=== PATIENT | female | born 1960 | race Caucasian/White ===

== ENCOUNTER 2022-12-01 01:40 | Inpatient (IN) | payer OTHER, SELFPAY ==
--- OUTSIDE RECORDS SUMMARY | 2022-12-01 01:43 | XMS_ITS | Patient Health Record ---
Author Name Unknown Organization [facility] Address [address] [place] [address] Care Team Providers Care Feather Stitcher Name Role Phone CARLOS MANUEL CURRIE Primary Care Provider Marcelino Conroy Unavailable [phone] REASON FOR REFERRAL No Information MEDICATIONS Medication SIG (Take, Route, Frequency, Duration) Notes Start Date End Date Status buPROPion HCl 100 MG 1 tablet Orally Twi ce a day for 30 day(s) Active Omeprazole 40 MG 1 capsule 30 minutes before morning meal Orally Once a day for 30 day(s) Active Divalproex Sodium ER 500 MG 1 tablet Ora lly Once a day for 30 day(s) Active Venlafaxine HCl 25 MG 1 tablet with food Orally Twice a day for 30 day(s) Active Gabapentin 300 MG 1 capsule Orally Onc e a day for 30 day(s) Active traZODone HCl 50 MG 1 tablet at bedtime as needed Orally Once a day for 30 day(s) Active Probiotic 250 MG 1 capsule Orally Twi ce a day for 30 day(s) Active SOCIAL HISTORY Sex Assigned At : Social History Observation Description Sex Assigned At Unknown PLAN OF TREATMENT No Information Insurance Providers Payer Name Payer Address Payer Phone Subscriber Number Group Number Insured Name Patient Relationship to Insured Coverage Start Date Coverage End Date [facility] [address] [address] [place] [phone] [id number] Jena Rivera Self - patient is the insured [employer] [address] [place] [address] [id number] Jena Rivera Self - patient is the insured MEDICAL (GENERAL) HISTORY Medical History History ICD Code insomnia serasonal allergies tremors gastroesophageal reflux disease (GERD) Hiatal hernia Surgical History Surgery Date(Month/Year) colonoscopy
[2022-12-01 01:50] VITALS: BP 141/67; PULSE 68; RESP 18; TEMP 36.4; O2SAT 99
[2022-12-01] MEDS: Famotidine 20 MG TABLET PO ×3 (03:41→22:15)
[2022-12-01 04:00] VITALS: BMI 27.8
--- NOTE | 2022-12-01 06:55 | PC.ADMIT ---
Pt is a 62 year old female admitted to unit after referral from [facility] crisis referral service from [facility]. Arrived on unit at 0150 this AM. Legal status is CV. Pt reported medical issues are GERD and pt is also hard of hearing. Pt did not report DM Type 1 but it is on ED notes in places from [facility]. Pt denies substance use, tobacco use or etoh use. Per crisis report pt was having increased depression and SI and reported to doctor at urgent care that she wanted to walk into traffic to end her life. Pt has anxiety, depression, bipolar and PTSD. Doctor at urgent care directed pt to got to ED for evaluation. Pt denies any IPLOC admissions gustavo reports hx of SA's many years ago via OD on meds and states she never told anyone. Pt denies any psych sx. Pt presents as quiet and she is cooperative, has a sense of humor about herself and has direct and linear thought pattern. Provider relationship banker Mosqueda notified of admission and orders obtained. Pt placed on 15 minute safety checks and reports feeling safe in the hospital.
[2022-12-01 09:00] VITALS: BP 118/58; PULSE 64; RESP 20; TEMP 36.6; O2SAT 98
[2022-12-01] MEDS: Gabapentin 300 MG CAPSULE PO (10:40)
[2022-12-01] MEDS: buPROPion HCl XL 300 MG TAB.ER.24H PO (10:48)
[2022-12-01] MEDS: Omeprazole 20 MG CAPSULE.DR PO ×2 (10:48→16:42)
--- NOTE | 2022-12-01 11:20 | P.CONHOSP_ITS ---
History of Present Illness Data of Consult Service Date: 12/01/22 Primary Care Provider: Unknown Physician HPI Reason for consult: Admission H&P Pt is a 62-year-old female with a PMH significant for?IBS, GERD, hiatal hernia, celiac disease/gluten intolerance, HLD not on statin, and depression who is admitted to [facility] psychiatry unit for increasing depression for the past 2 months with SI with plan to walk into traffic. Medical consult for admission H&P. ?Patient has a long history of GI issues, including IBS, gluten intolerance/celiac disease, hiatal hernia, and GERD. Patient complains of worsening acid reflex for the past few days secondary to missing a few doses of her famotidine and pantoprazole while in the hospital. Patient also complains of vaginal follow odor and itching for many months. Patient says she was previously diagnosed with bacterial vaginosis though she did not seek treatment due to her depression. Patient seems amenable to repeating testing and receiving treatment for possible bacterial vaginosis. She also reports having high cholesterol she controls with diet rather than with statins. Patient otherwise has no acute medical complaints. Denies chest pain/pressure, palpitations. No shortness of breath. Denies fever, chills, nausea, vomiting, abdominal pain. Labs reviewed, grossly unremarkable. Review of Systems Review of Systems: Chronic acid reflux, worse the past few days since missed doses of PPI and H2 becca Vaginal foul odor, itching Denies dysuria Denies fever, chills, nausea, vomiting, abdominal pain No chest pain/pressure, palpitations Denies shortness of breath PMFSH Social History Household Members: Unknown / Unable to assess Housing: Apartment Do you presently have visiting nurse or other home services: No Patient Tobacco Use Status: Never used Tobacco Use of substances other than those prescribed or required for medical reasons: No Currently Displaying Signs/Symptoms of Drug Intoxication Withdrawal: No Do you feel safe in your current relationship?: Yes Advance Directives: No Advance Directives Information Provided: No Do you have thoughts of harming others: None Do you have a plan to hurt others: No Plan Recently lost weight without trying: No How much weight loss: Not applicable Eating poorly because of decreased appetite: No Nutrition screen score: 0 Patient : No : No Meds Allergies Allergy/AdvReac Type Severity Reaction Status Date / Time gluten Allergy Unknown Unknown Verified 12/01/22 03:59 milk Allergy Unknown Unknown Verified 12/01/22 04:00 Active Medications: Current Medications Acetaminophen (Acetaminophen 325 Mg Tablet) 650 mg PO Q6H PRN PRN Reason: Headache/Pain Mild Scale (1-3) Al Hydroxide/Mg Hydroxide (Magnesium Hydrox/Alum Hydrox 30 Ml Oral.Susp) 30 ml PO Q6H PRN PRN Reason: Heartburn/Nausea Bupropion HCl (Bupropion Hcl Xl 300 Mg Tab.Er.24h) 300 mg PO DAILY REPLACED BY [facility] Last Admin: 12/01/22 10:48 Dose: 300 mg Divalproex Sodium (Divalproex Sodium Er 500 Mg Tab.Er.24h) 500 mg PO BEDTIME REPLACED BY [facility] Famotidine (Famotidine 20 Mg Tablet) 20 mg PO BEDTIME REPLACED BY [facility] Fluticasone Propionate (Fluticasone Propionate Nasal 16 Gm [place]) 1 spray NOSTRIL-B BID REPLACED BY [facility] Gabapentin (Gabapentin 300 Mg Capsule) 300 mg PO DAILY REPLACED BY [facility] Last Admin: 12/01/22 10:40 Dose: 300 mg Hydroxyzine HCl (Hydroxyzine Hcl 25 Mg Tablet) 25 mg PO Q6H PRN PRN Reason: Anxiety Magnesium Hydroxide (Milk Of Magnesia 30 Ml Oral.Susp) 30 ml PO DAILY PRN PRN Reason: Constipation Magnesium Oxide (Magnesium Oxide 400 Mg Tablet) 400 mg PO BEDTIME REPLACED BY [facility] Nicotine Polacrilex (Nicotine Polacrilex 2 Mg Gum) 2 mg BUCCAL Q2H PRN PRN Reason: Nicotine Cravings Omeprazole (Omeprazole 20 Mg Capsule.Dr) 20 mg PO BID@0630,1630 REPLACED BY [facility] Last Admin: 12/01/22 10:48 Dose: 20 mg Trazodone HCl (Trazodone Hcl 50 Mg Tablet) 50 mg PO BEDTIME MRX1 PRN PRN Reason: Insomnia Trazodone HCl (Trazodone Hcl 50 Mg Tablet) 50 mg PO BEDTIME REPLACED BY [facility] Home Medications Medication Instructions Recorded Confirmed Last Taken Type bupropion HCl 150 mg tablet,12 hr 150 mg PO BID 12/01/22 12/01/22 Unknown History sustained-release divalproex 500 mg tablet,extended 500 mg PO BEDTIME 12/01/22 12/01/22 Unknown History release 24 hr famotidine 20 mg tablet 20 mg PO BEDTIME 12/01/22 12/01/22 11/30/22 09:18 History fluticasone propionate 50 1 spray intranasal BID 12/01/22 12/01/22 Unknown History mcg/actuation nasal spray,suspension gabapentin 300 mg capsule 300 mg PO DAILY 12/01/22 12/01/22 Unknown History magnesium oxide 400 mg (241.3 mg 400 mg PO BEDTIME 12/01/22 12/01/22 11/30/22 History magnesium) tablet pantoprazole 40 mg tablet,delayed 40 mg PO BID 12/01/22 12/01/22 Unknown History release trazodone 100 mg tablet 50 mg PO BEDTIME 12/01/22 12/01/22 Unknown History Physical Exam Vital Signs and Narrative: Vital Signs: Last Vital Signs Temp 97.8 F 12/01/22 09:00 Pulse 64 12/01/22 09:00 Resp 20 12/01/22 09:00 BP 118/58 L 12/01/22 09:00 Pulse Ox 98 12/01/22 09:00 O2 Del Method Room Air 12/01/22 09:00 BMI result Body Mass Index 27.8 Constitutional: Alert, in no acute distress. Mental Status: Oriented to person, place and time. Eyes: Pupils are equal, round, and reactive to light. Ear, Nose, and Throat: Oropharynx clear, mucous membranes moist. Ears and nose without deformities. Trachea midline. Respiratory: Clear to auscultation bilaterally. No wheezing, rales, or rhonchi. Cardiovascular: S1, S2 regular. No murmurs, rubs, or gallops. Gastrointestinal: Abdomen soft, non-tender, non-distended. Normal bowel sounds. Neurologic: Cranial nerves II-XII are grossly intact bilaterally. No focal neurological deficits. Moves all extremities spontaneously. Skin: No rashes or lesions noted. Musculoskeletal: No cyanosis or clubbing. Extremities: No edema. Psychiatric: Normal mood and affect. Assessment and Plan (1) Medical clearance for psychiatric admission: Status: Acute Plan Pt is a 62-year-old female with a PMH significant for?IBS, GERD, hiatal hernia, celiac disease/gluten intolerance, HLD not on statin, and depression who is admitted to psychiatry unit for increasing depression for the past 2 months with SI with plan to walk into traffic. Medical consult for admission H&P. Mood disorder Plan as per Psychiatry Question of bacterial vaginosis Patient states she has had vaginal foul order and itching for quite sometime States she was diagnosed with BV previously but has not yet sought treatment Will get BV panel, patient can self swab Gluten intolerance Will place gluten-free diet HLD Patient states she has high cholesterol but not on statins but instead controls it with diet Will place on low-fat diet IBS/GERD Continue famotidine, pantoprazole Thank you for allowing us to participate in the care of this patient. Will continue to follow pending swab results. Please let us know if there are any acute complaints or questions. Time Spent With Patient Time: Total time managing care of this patient today ____ minutes.
[2022-12-01] MEDS: Fluticasone Propionate Nasal 16 GM SPRAY 1 SPRAY NOSTRIL-B ×2 (12:41→22:56)
[2022-12-01 20:05] VITALS: BP 135/83; PULSE 87; RESP 18; TEMP 36.3; O2SAT 100
--- NOTE | 2022-12-01 20:42 | HO.PSYADMNOT ---
HPI Date of Service: 12/01/22 Chief Complaint: Major Depressive Disorder HPI Narrative: per crisis assessment from OSH, pt presented to ED 11/29 with c/o SI with plan to walk into traffic. she endorsed anhedonia, amotivation, anergia, anorexia, insomnia, depressed mood, SI. she reported psychosocial stressors of concern for housing stability (that her boyfriend might ask her to move out), unemployment with financial strain, inability to act on these issues so as to ameliorate them. on interview with MD on psych unit, pt's narrative c/w that in crisis michelle. unable to clearly establish connection btwn life events and current Sx, however. reports she had done well on imipramine in the past but has had to stop taking it due to cardiac effects. she is not very confident in her recall, but she believes she has tried prozac, zoloft, and paxil in the past. she believes one or more of those medications caused an increase in anxiety for her. she is unable to account for why she is prescribed depakote or gabapentin, other than believing that they are mood stabilizers, though she denies any h/o manic episodes. she is concerned about depression, for the most part, currently. she is agreeable to DC gabapentin as not indicated for any purpose and to increase wellbutrin to 450 mg daily for depression. that VPA is present as a prophylactic AED is discussed, in the context of black box warning to increased risk of seizure with wellbutrin. Past Psychiatric History: hosps: none prior SA: remote h/o overdose; not reported so had no treatment SIB: h/o skin picking, none recently outpt: has outpt med provider she sees remotely and whom she feels is very difficult to get a hold of. Medical Evaluation Reviewed: Hospitalist Michelle Pending [facility] Narrative: hearing impaired GERD gluten sensitivity leaky [cardiac] valve Family History: mother - bipolar disorder other family members on wellbutrin, helped by it. father's side has substance use disorder Hx, unspecified. Social History: living with her boyfriend annette in [place]. not working. Substance History: cannabis - daily past 4 years alcohol - h/o 2 mixed drinks daily, now sober Trauma History: reported h/o childhood trauma Diagnostics Vital Signs (24Hr): Vital Signs - 24 hr 12/01/22 01:50 12/01/22 09:00 Temperature 97.6 F 97.8 F Pulse Rate 68 64 Respiratory Rate 18 20 Blood Pressure 141/67 H 118/58 L Pulse Oximetry 99 98 Oxygen Delivery Method Room Air Room Air BMI result Body Mass Index 27.8 Meds/Allergies Meds Home Medications Medication Instructions Recorded Confirmed Type bupropion HCl 150 mg tablet,12 hr 150 mg PO BID 12/01/22 12/01/22 History sustained-release divalproex 500 mg tablet,extended 500 mg PO BEDTIME 12/01/22 12/01/22 History release 24 hr famotidine 20 mg tablet 20 mg PO BEDTIME 12/01/22 12/01/22 History fluticasone propionate 50 1 spray intranasal BID 12/01/22 12/01/22 History mcg/actuation nasal spray,suspension gabapentin 300 mg capsule 300 mg PO DAILY 12/01/22 12/01/22 History magnesium oxide 400 mg (241.3 mg 400 mg PO BEDTIME 12/01/22 12/01/22 History magnesium) tablet pantoprazole 40 mg tablet,delayed 40 mg PO BID 12/01/22 12/01/22 History release trazodone 100 mg tablet 50 mg PO BEDTIME 12/01/22 12/01/22 History Allergies Allergies Allergy/AdvReac Type Severity Reaction Status Date / Time gluten Allergy Unknown Unknown Verified 12/01/22 03:59 milk Allergy Unknown Unknown Verified 12/01/22 04:00 Mental Status Exam Mental Status Exam Narrative: calm, cooperative. adequately dressed and groomed, wearing street clothes. no PMA/PMR. speech incr amount, nml rate and loudness, decr latency. thoughts linear and logical. affect constricted, normo-intense, non-labile. mood nervous, hopeful. denies SI/SIBI/HI/AVH. Assessment & Plan Assessment & Plan (1) Chronic post-traumatic stress disorder (PTSD): Status: Acute Code(s): F43.12 - Post-traumatic stress disorder, chronic (2) Major depressive disorder: Status: Acute Code(s): F32.9 - Major depressive disorder, single episode, unspecified (3) Cannabis use disorder: Status: Acute Code(s): F12.90 - Cannabis use, unspecified, uncomplicated (4) Asperger's disorder: Status: Acute Code(s): F84.5 - Asperger's syndrome Plan increase wellbutrin to 450 mg daily DC gabapentin as not indicated Patient educated on: diagnosis, medication risk/benefits and substance abuse Reason for continued inpatient stay Substantial Risk for: harm to self, inability to function and rapid decompensation Statement Statement: I have reviewed the history and physical and performed a pertinent examination on my patient. No changes have occurred unless specified. If the History and Physical was not performed prior to admission, the Hospitalist's service will be consulted for completing the admission physical. Time Spent With Patient Time: Total time managing care of this patient today __75__ minutes.
[2022-12-01] MEDS: Divalproex Sodium ER 500 MG TAB.ER.24H PO (22:15)
[2022-12-01] MEDS: traZODone HCL 50 MG TABLET PO (22:15)
[2022-12-01] MEDS: Magnesium Oxide 400 MG TABLET PO (22:16)
[2022-12-02] MEDS: Omeprazole 20 MG CAPSULE.DR PO ×2 (07:14→17:05)
[2022-12-02 07:58] LABS: Estimated Average Glucose 103 mg/dL; Hemoglobin A1C 111.1143 umol/L; Hemoglobin A1c % 5.2 % (<6.0)
[2022-12-02 08:55] VITALS: BP 119/53; PULSE 62; RESP 20; TEMP 36.3; O2SAT 97
[2022-12-02] MEDS: buPROPion HCl XL 150 MG TAB.ER.24H 450 MG PO (08:57)
[2022-12-02] MEDS: Famotidine 20 MG TABLET PO ×2 (08:58→20:58)
[2022-12-02] MEDS: Fluticasone Propionate Nasal 16 GM SPRAY 1 SPRAY NOSTRIL-B ×2 (09:59→20:58)
[2022-12-02 12:18] LABS: Alanine Aminotransferase 15 U/L (0-31); Albumin Level 4.2 g/dL (3.5-5.0); Alkaline Phosphatase 63 U/L (39-117); Anion Gap 16 (12-20); Aspartate Amino Transferase 18 U/L (5-31); Bilirubin Total 0.3 mg/dL (0.0-1.0); Blood Urea Nitrogen 23 mg/dL (9-16); Calcium 9.5 mg/dL (8.4-10.2); Carbon Dioxide 23 mmol/L (22-29); Chloride 106 mmol/L (96-108); Cholesterol 257 mg/dL (<200); Creatinine Clr Calc Pharmacy 42.1; Estimated Glomerular Filt Rate 44; Folate 13.5 ng/mL (> or = 4.0); Free T4 (Free Thyroxine) 0.79 ng/dL (0.71-1.85); Glucose Fasting 104 mg/dL (60-99); HDL Cholesterol 47 mg/dL (>40); LDL Cholesterol Calculated 144 mg/dL (<100); Potassium 4.7 mmol/L (3.3-5.1); Sodium 140 mmol/L (135-145); Thyroid Stimulating Hormone 4.12 uIU/mL (0.32-4.0); Total Protein 6.9 g/dL (6.5-8.0); Triglycerides 332 mg/dL (<150); Vitamin B12 845 pg/mL (200-900)
--- NOTE | 2022-12-02 15:14 | P.PNPSI_ITS ---
Subjective Subjective Date of Service: 12/02/22 Reason For Visit: Major Depressive Disorder Interim History: pleasant, somewhat labile, comes to tears quickly upon mentioning her cat. discuss removal of milk allergy and Rx for eye drops. will continue current mgmt for now. per staff, reporting dep/anx 12/11. Mental Status Exam Mental Status Exam Narrative: calm, cooperative. adequately dressed and groomed, wearing street clothes. no PMA/PMR. speech incr amount, nml rate and loudness, decr latency. thoughts linear and logical. affect full range, hyper-intense, min-labile (teary). no SI/SIBI/HI/AVH expressed. Diagnostics Vital Signs (24Hr): Vital Signs - 24 hr 12/01/22 20:05 12/02/22 08:55 Temperature 97.4 F 97.3 F Pulse Rate 87 62 Respiratory Rate 18 20 Blood Pressure 135/83 119/53 L Pulse Oximetry 100 97 Oxygen Delivery Method Room Air Room Air BMI result Body Mass Index 27.8 Labs 12/02/22 07:06 Labs: Laboratory Results - last 48 hr 12/02/22 07:06 Sodium 140 Potassium 4.7 Chloride 106 Carbon Dioxide 23 Anion Gap 16 BUN 23 H Creatinine 1.24 Estim Creat Clear Calc 42.1 Estimated GFR 44 Fasting Glucose 104 H Estimat Average Glucose 103 Hemoglobin A1c % 5.2 Calcium 9.5 Total Bilirubin 0.3 AST 18 ALT 15 Alkaline Phosphatase 63 Total Protein 6.9 Albumin 4.2 Triglycerides 332 H Cholesterol 257 H LDL Cholesterol, Calc 144 H HDL Cholesterol 47 Vitamin B12 845 Folate 13.5 TSH 4.12 H Free T4 0.79 Medications Medications Current Medications Acetaminophen (Acetaminophen 325 Mg Tablet) 650 mg PO Q6H PRN PRN Reason: Headache/Pain Mild Scale (1-3) Al Hydroxide/Mg Hydroxide (Magnesium Hydrox/Alum Hydrox 30 Ml Oral.Susp) 30 ml PO Q6H PRN PRN Reason: Heartburn/Nausea Bupropion HCl (Bupropion Hcl Xl 150 Mg Tab.Er.24h) 450 mg PO DAILY [facility] Last Admin: 12/02/22 08:57 Dose: 450 mg Divalproex Sodium (Divalproex Sodium Er 500 Mg Tab.Er.24h) 500 mg PO BEDTIME [facility] Last Admin: 12/01/22 22:15 Dose: 500 mg Famotidine (Famotidine 20 Mg Tablet) 20 mg PO BID [facility] Last Admin: 12/02/22 08:58 Dose: 20 mg Fluticasone Propionate (Fluticasone Propionate Nasal 16 Gm [place]) 1 spray NOSTRIL-B BID [facility] Last Admin: 12/02/22 09:59 Dose: 1 spray Hydroxyzine HCl (Hydroxyzine Hcl 25 Mg Tablet) 25 mg PO Q6H PRN PRN Reason: Anxiety Magnesium Hydroxide (Milk Of Magnesia 30 Ml Oral.Susp) 30 ml PO DAILY PRN PRN Reason: Constipation Magnesium Oxide (Magnesium Oxide 400 Mg Tablet) 400 mg PO BEDTIME [facility] Last Admin: 12/01/22 22:16 Dose: 400 mg Nicotine Polacrilex (Nicotine Polacrilex 2 Mg Gum) 2 mg BUCCAL Q2H PRN PRN Reason: Nicotine Cravings Patient Own Pataday 1 each EYE-BOTH BEDTIME [facility] Omeprazole (Omeprazole 20 Mg Capsule.Dr) 20 mg PO BID@0630,1630 [facility] Last Admin: 12/02/22 07:14 Dose: 20 mg Trazodone HCl (Trazodone Hcl 50 Mg Tablet) 50 mg PO BEDTIME MRX1 PRN PRN Reason: Insomnia Trazodone HCl (Trazodone Hcl 50 Mg Tablet) 50 mg PO BEDTIME [facility] Last Admin: 12/01/22 22:15 Dose: 50 mg Allergies Allergies Allergy/AdvReac Type Severity Reaction Status Date / Time gluten Allergy Unknown Unknown Verified 12/01/22 03:59 Assessment & Plan Assessment & Plan (1) Chronic post-traumatic stress disorder (PTSD): Status: Acute Code(s): F43.12 - Post-traumatic stress disorder, chronic (2) Major depressive disorder: Status: Acute Code(s): F32.9 - Major depressive disorder, single episode, unspecified (3) Cannabis use disorder: Status: Acute Code(s): F12.90 - Cannabis use, unspecified, uncomplicated (4) Asperger's disorder: Status: Acute Code(s): F84.5 - Asperger's syndrome Plan 11/30: increase wellbutrin to 450 mg daily. DC gabapentin as not indicated. 12/02: full range of affect, a bit labile/teary. continue current mgmt. Reason for continued inpatient stay Substantial Risk for: harm to self, inability to function and rapid decompensation Time Spent With Patient Time: Total time managing care of this patient today ____ minutes.
[2022-12-02 19:22] VITALS: BP 135/70; PULSE 88; RESP 18; TEMP 36.4; O2SAT 97
[2022-12-02] MEDS: traZODone HCL 50 MG TABLET PO (20:58)
[2022-12-02] MEDS: Magnesium Oxide 400 MG TABLET PO (20:58)
[2022-12-02] MEDS: Divalproex Sodium ER 500 MG TAB.ER.24H PO (20:58)
[2022-12-03] MEDS: Omeprazole 20 MG CAPSULE.DR PO ×2 (06:44→17:29)
[2022-12-03] MEDS: Fluticasone Propionate Nasal 16 GM SPRAY 1 SPRAY NOSTRIL-B ×2 (08:32→20:40)
[2022-12-03] MEDS: Famotidine 20 MG TABLET PO ×2 (08:32→20:40)
[2022-12-03] MEDS: buPROPion HCl XL 150 MG TAB.ER.24H 450 MG PO (08:32)
[2022-12-03 08:48] VITALS: BP 104/66; PULSE 89; RESP 18; TEMP 36.2; O2SAT 96
[2022-12-03 08:56] LABS: BV Int Neg Control Negative (Negative); BV Int Pos Control Positive (Positive)
[2022-12-03] MEDS: Psyllium seed 3.7 GM PACKET PO (12:44)
[2022-12-03] MEDS: metroNIDAZOLE 500 MG TABLET PO (13:26)
--- NOTE | 2022-12-03 13:49 | HO.PSYCHPN ---
Subjective Subjective Date of Service: 12/03/22 Reason For Visit: Major Depressive Disorder Interim History: mood better. asks for metamucil. urine gardnerella POS, flagyl started. per staff, anx/dep 10 yesterday. no SI/HI. cheerful, cooperative. slept well, taking meds. Mental Status Exam Mental Status Exam Narrative: calm, cooperative. adequately dressed and groomed, wearing street clothes. no PMA/PMR. speech incr amount, nml rate and loudness, decr latency. thoughts linear and logical. affect full range, hyper-intense, non-labile. no SI/SIBI/HI/AVH expressed. Diagnostics Vital Signs (24Hr): Vital Signs - 24 hr 12/02/22 19:22 12/03/22 08:48 Temperature 97.6 F 97.2 F Pulse Rate 88 89 Respiratory Rate 18 18 Blood Pressure 135/70 104/66 Pulse Oximetry 97 96 Oxygen Delivery Method Room Air Room Air BMI result Body Mass Index 27.8 Labs 12/02/22 07:06 Labs: Laboratory Results - last 48 hr 12/01/22 12/02/22 16:33 07:06 Sodium 140 Potassium 4.7 Chloride 106 Carbon Dioxide 23 Anion Gap 16 BUN 23 H Creatinine 1.24 Estim Creat Clear Calc 42.1 Estimated GFR 44 Fasting Glucose 104 H Estimat Average Glucose 103 Hemoglobin A1c % 5.2 Calcium 9.5 Total Bilirubin 0.3 AST 18 ALT 15 Alkaline Phosphatase 63 Total Protein 6.9 Albumin 4.2 Triglycerides 332 H Cholesterol 257 H LDL Cholesterol, Calc 144 H HDL Cholesterol 47 Vitamin B12 845 Folate 13.5 TSH 4.12 H Free T4 0.79 Michelle species DNA Negative Gardnerella DNA Probe Positive A Trichomonas DNA Probe Negative Medications Medications Current Medications Acetaminophen (Acetaminophen 325 Mg Tablet) 650 mg PO Q6H PRN PRN Reason: Headache/Pain Mild Scale (1-3) Al Hydroxide/Mg Hydroxide (Magnesium Hydrox/Alum Hydrox 30 Ml Oral.Susp) 30 ml PO Q6H PRN PRN Reason: Heartburn/Nausea Bupropion HCl (Bupropion Hcl Xl 150 Mg Tab.Er.24h) 450 mg PO DAILY [facility] Last Admin: 12/03/22 08:32 Dose: 450 mg Divalproex Sodium (Divalproex Sodium Er 500 Mg Tab.Er.24h) 500 mg PO BEDTIME [facility] Last Admin: 12/02/22 20:58 Dose: 500 mg Famotidine (Famotidine 20 Mg Tablet) 20 mg PO BID [facility] Last Admin: 12/03/22 08:32 Dose: 20 mg Fluticasone Propionate (Fluticasone Propionate Nasal 16 Gm [place]) 1 spray NOSTRIL-B BID [facility] Last Admin: 12/03/22 08:32 Dose: 1 spray Hydroxyzine HCl (Hydroxyzine Hcl 25 Mg Tablet) 25 mg PO Q6H PRN PRN Reason: Anxiety Magnesium Hydroxide (Milk Of Magnesia 30 Ml Oral.Susp) 30 ml PO DAILY PRN PRN Reason: Constipation Magnesium Oxide (Magnesium Oxide 400 Mg Tablet) 400 mg PO BEDTIME [facility] Last Admin: 12/02/22 20:58 Dose: 400 mg Metronidazole (Metronidazole 500 Mg Tablet) 500 mg PO Q12H [facility] Stop: 12/10/22 12:59 Last Admin: 12/03/22 13:26 Dose: 500 mg Nicotine Polacrilex (Nicotine Polacrilex 2 Mg Gum) 2 mg BUCCAL Q2H PRN PRN Reason: Nicotine Cravings Patient Own Pataday 1 each EYE-BOTH BEDTIME [facility] Last Admin: 12/02/22 20:58 Dose: 1 each Omeprazole (Omeprazole 20 Mg Capsule.Dr) 20 mg PO BID@0630,1630 [facility] Last Admin: 12/03/22 06:44 Dose: 20 mg Psyllium Hydrophilic Mucilloid (Psyllium Seed 3.7 Gm Packet) 3.7 gm PO DAILY [facility] Last Admin: 12/03/22 12:44 Dose: 3.7 gm Trazodone HCl (Trazodone Hcl 50 Mg Tablet) 50 mg PO BEDTIME MRX1 PRN PRN Reason: Insomnia Trazodone HCl (Trazodone Hcl 50 Mg Tablet) 50 mg PO BEDTIME [facility] Last Admin: 12/02/22 20:58 Dose: 50 mg Allergies Allergies Allergy/AdvReac Type Severity Reaction Status Date / Time gluten Allergy Unknown Unknown Verified 12/01/22 03:59 Assessment & Plan Assessment & Plan (1) Chronic post-traumatic stress disorder (PTSD): Status: Acute Code(s): F43.12 - Post-traumatic stress disorder, chronic (2) Major depressive disorder: Status: Acute Code(s): F32.9 - Major depressive disorder, single episode, unspecified (3) Cannabis use disorder: Status: Acute Code(s): F12.90 - Cannabis use, unspecified, uncomplicated (4) Asperger's disorder: Status: Acute Code(s): F84.5 - Asperger's syndrome Plan 11/30: increase wellbutrin to 450 mg daily. DC gabapentin as not indicated. 12/02: full range of affect, a bit labile/teary. continue current mgmt. 12/04: BV diagnosed, flagyl x 7 days ordered. mood much better today. add metamucil. continue current mgmt otherwise. Reason for continued inpatient stay Substantial Risk for: inability to function and rapid decompensation Time Spent With Patient Time: Total time managing care of this patient today __25__ minutes.
[2022-12-03 19:31] VITALS: BP 140/80; PULSE 83; RESP 18; TEMP 36.2; O2SAT 100
[2022-12-03] MEDS: traZODone HCL 50 MG TABLET PO (20:40)
[2022-12-03] MEDS: Magnesium Oxide 400 MG TABLET PO (20:40)
[2022-12-03] MEDS: Divalproex Sodium ER 500 MG TAB.ER.24H PO (20:40)
[2022-12-04] MEDS: Omeprazole 20 MG CAPSULE.DR PO ×2 (06:22→17:24)
[2022-12-04] MEDS: metroNIDAZOLE 500 MG TABLET PO (06:22)
[2022-12-04] MEDS: buPROPion HCl XL 150 MG TAB.ER.24H 450 MG PO (08:32)
[2022-12-04] MEDS: Famotidine 20 MG TABLET PO ×2 (08:32→21:06)
[2022-12-04] MEDS: Fluticasone Propionate Nasal 16 GM SPRAY 1 SPRAY NOSTRIL-B ×2 (08:35→21:08)
[2022-12-04 08:40] VITALS: BP 139/61; PULSE 67; RESP 20; TEMP 36.3; O2SAT 100
--- NOTE | 2022-12-04 11:02 | P.PNPSI_ITS ---
Subjective Subjective Date of Service: 12/04/22 Reason For Visit: Major Depressive Disorder Interim History: calm, cooperative. concerned she is still not getting milk products on her tray.. discussed with ALEXANDRE levi. also c/o need for hemorrhoids Tx; D/W pharmacy. mood remains improved, planning on discharge . per staff, anx/dep. taking medications. isolative, pleasant. slept well. Mental Status Exam Mental Status Exam Narrative: calm, cooperative. adequately dressed and groomed, wearing street clothes. no PMA/PMR. speech incr amount, nml rate and loudness, decr latency. thoughts linear and logical. affect full range, hyper-intense, non-labile. no SI/SIBI/HI/AVH expressed. Diagnostics Vital Signs (24Hr): Vital Signs - 24 hr 12/03/22 19:31 12/04/22 08:40 Temperature 97.2 F 97.4 F Pulse Rate 83 67 Respiratory Rate 18 20 Blood Pressure 140/80 H 139/61 Pulse Oximetry 100 100 Oxygen Delivery Method Room Air Room Air BMI result Body Mass Index 27.8 Labs 12/02/22 07:06 Labs: Laboratory Results - last 48 hr 12/01/22 12/02/22 16:33 07:06 Sodium 140 Potassium 4.7 Chloride 106 Carbon Dioxide 23 Anion Gap 16 BUN 23 H Creatinine 1.24 Estim Creat Clear Calc 42.1 Estimated GFR 44 Fasting Glucose 104 H Calcium 9.5 Total Bilirubin 0.3 AST 18 ALT 15 Alkaline Phosphatase 63 Total Protein 6.9 Albumin 4.2 Triglycerides 332 H Cholesterol 257 H LDL Cholesterol, Calc 144 H HDL Cholesterol 47 Vitamin B12 845 Folate 13.5 TSH 4.12 H Free T4 0.79 Imchelle species DNA Negative Gardnerella DNA Probe Positive A Trichomonas DNA Probe Negative Medications Medications Current Medications Acetaminophen (Acetaminophen 325 Mg Tablet) 650 mg PO Q6H PRN PRN Reason: Headache/Pain Mild Scale (1-3) Al Hydroxide/Mg Hydroxide (Magnesium Hydrox/Alum Hydrox 30 Ml Oral.Susp) 30 ml PO Q6H PRN PRN Reason: Heartburn/Nausea Bupropion HCl (Bupropion Hcl Xl 150 Mg Tab.Er.24h) 450 mg PO DAILY [facility] Last Admin: 12/04/22 08:32 Dose: 450 mg Divalproex Sodium (Divalproex Sodium Er 500 Mg Tab.Er.24h) 500 mg PO BEDTIME [facility] Last Admin: 12/03/22 20:40 Dose: 500 mg Famotidine (Famotidine 20 Mg Tablet) 20 mg PO BID [facility] Last Admin: 12/04/22 08:32 Dose: 20 mg Fluticasone Propionate (Fluticasone Propionate Nasal 16 Gm [place]) 1 spray NOSTRIL-B BID [facility] Last Admin: 12/04/22 08:35 Dose: 1 spray Hydroxyzine HCl (Hydroxyzine Hcl 25 Mg Tablet) 25 mg PO Q6H PRN PRN Reason: Anxiety Magnesium Hydroxide (Milk Of Magnesia 30 Ml Oral.Susp) 30 ml PO DAILY PRN PRN Reason: Constipation Magnesium Oxide (Magnesium Oxide 400 Mg Tablet) 400 mg PO BEDTIME [facility] Last Admin: 12/03/22 20:40 Dose: 400 mg Metronidazole (Metronidazole 500 Mg Tablet) 500 mg PO Q12H [facility] Last Admin: 12/04/22 06:22 Dose: 500 mg Nicotine Polacrilex (Nicotine Polacrilex 2 Mg Gum) 2 mg BUCCAL Q2H PRN PRN Reason: Nicotine Cravings Patient Own Pataday 1 each EYE-BOTH BEDTIME [facility] Last Admin: 12/03/22 20:40 Dose: 1 each Omeprazole (Omeprazole 20 Mg Capsule.Dr) 20 mg PO BID@0630,1630 [facility] Last Admin: 12/04/22 06:22 Dose: 20 mg Pramoxine HCl (Pramoxine Hcl 1 % Rectal Foam 15 Gm) [address] BID PRN PRN Reason: Hemorrhoids Psyllium Hydrophilic Mucilloid (Psyllium Seed 3.7 Gm Packet) 3.7 gm PO DAILY [facility] Last Admin: 12/04/22 08:32 Dose: Not Given Trazodone HCl (Trazodone Hcl 50 Mg Tablet) 50 mg PO BEDTIME MRX1 PRN PRN Reason: Insomnia Trazodone HCl (Trazodone Hcl 50 Mg Tablet) 50 mg PO BEDTIME [facility] Last Admin: 12/03/22 20:40 Dose: 50 mg Allergies Allergies Allergy/AdvReac Type Severity Reaction Status Date / Time gluten Allergy Unknown Unknown Verified 12/01/22 03:59 Assessment & Plan Assessment & Plan (1) Chronic post-traumatic stress disorder (PTSD): Status: Acute Code(s): F43.12 - Post-traumatic stress disorder, chronic (2) Major depressive disorder: Status: Acute Code(s): F32.9 - Major depressive disorder, single episode, unspecified (3) Cannabis use disorder: Status: Acute Code(s): F12.90 - Cannabis use, unspecified, uncomplicated (4) Asperger's disorder: Status: Acute Code(s): F84.5 - Asperger's syndrome Assessment and Plan: R/O Plan 11/30: increase wellbutrin to 450 mg daily. DC gabapentin as not indicated. 12/02: full range of affect, a bit labile/teary. continue current mgmt. 12/03: BV diagnosed, flagyl x 7 days ordered. mood much better today. add metamucil. continue current mgmt otherwise. 12/04: diarrhea now tih flagyl. do not take miralax or metamucil. add hemorrhoids medication per pharmacy. planning for discharge. Reason for continued inpatient stay Substantial Risk for: inability to function and rapid decompensation Time Spent With Patient Time: Total time managing care of this patient today _25___ minutes.
--- NOTE | 2022-12-04 16:12 | PC.NURSE ---
Pt signed a 3 day notice on 12/04/22, up on 12/07/22
[2022-12-04 20:07] VITALS: BP 115/55; PULSE 66; RESP 16; TEMP 36.4; O2SAT 98
[2022-12-04] MEDS: Magnesium Oxide 400 MG TABLET PO (21:04)
[2022-12-04] MEDS: Divalproex Sodium ER 500 MG TAB.ER.24H PO (21:05)
[2022-12-04] MEDS: traZODone HCL 50 MG TABLET PO (21:05)
[2022-12-05] MEDS: Omeprazole 20 MG CAPSULE.DR PO ×2 (06:40→17:43)
[2022-12-05] MEDS: buPROPion HCl XL 150 MG TAB.ER.24H 450 MG PO (09:23)
[2022-12-05] MEDS: Famotidine 20 MG TABLET PO ×3 (09:23→23:14)
[2022-12-05] MEDS: Fluticasone Propionate Nasal 16 GM SPRAY 1 SPRAY NOSTRIL-B ×2 (09:25→20:58)
[2022-12-05 09:30] VITALS: BP 123/70; PULSE 74; TEMP 36.2; O2SAT 99
--- NOTE | 2022-12-05 15:52 | HO.PSYCHPN ---
Subjective Subjective Date of Service: 12/05/22 Reason For Visit: Major Depressive Disorder Subjective Notes: Conditional Voluntary Interim History: Reviewed in team and Dr. Holt. Patient reports feeling good and eager to go home . She is concerned about how she will get home. Observed attending groups and being social with peers and staff. denies SI/HI/VH/AH at this time. Medication Compliance: Yes Side effects from medications: No Attending Groups: Yes Review of Systems Review of Systems Chronic acid reflux, worse the past few days since missed doses of PPI and H2 becca Vaginal foul odor, itching Denies dysuria Denies fever, chills, nausea, vomiting, abdominal pain No chest pain/pressure, palpitations Denies shortness of breath Constitutional: Reports as per HPI Eyes: Reports as per HPI Reports as per HPI Cardiovascular: Reports as per HPI Respiratory: Reports as per HPI Gastrointestinal: Reports as per HPI Genitourinary: Reports as per HPI Musculoskeletal: Reports as per HPI Skin/Breast: Reports as per HPI Reports as per HPI Psychiatric: Reports as per HPI Endocrine: Reports as per HPI Hematologic/Lymphatic: Reports as per HPI Allergic/Immunologic: Reports as per HPI Mental Status Exam Mental Status Exam Narrative: Pt is alert and oriented; behavior is cooperative, friendly and calm; dressed in casual attire; mood is described as good ; eye contact appropriate; Speech is normal rate, volume and prosody and not pressured; no psychomotor agitation/retardation present; thought process is organized; Thought content is on tx; otherwise pertinent to relevant topics and without any delusional content, paranoid ideations or grandiosity; denies SI/HI. There is no evidence of perceptual disturbance. Patients insight and judgment are fair. Diagnostics Vital Signs (24Hr): Vital Signs - 24 hr 12/04/22 20:07 12/05/22 09:30 Temperature 97.6 F 97.1 F Pulse Rate 66 74 Respiratory Rate 16 Blood Pressure 115/55 L 123/70 Pulse Oximetry 98 99 Oxygen Delivery Method Room Air Room Air BMI result Body Mass Index 27.8 Labs 12/02/22 07:06 Medications Medications Current Medications Acetaminophen (Acetaminophen 325 Mg Tablet) 650 mg PO Q6H PRN PRN Reason: Headache/Pain Mild Scale (1-3) Al Hydroxide/Mg Hydroxide (Magnesium Hydrox/Alum Hydrox 30 Ml Oral.Susp) 30 ml PO Q6H PRN PRN Reason: Heartburn/Nausea Bupropion HCl (Bupropion Hcl Xl 150 Mg Tab.Er.24h) 450 mg PO DAILY [facility] Last Admin: 12/05/22 09:23 Dose: 450 mg Divalproex Sodium (Divalproex Sodium Er 500 Mg Tab.Er.24h) 500 mg PO BEDTIME [facility] Last Admin: 12/04/22 21:05 Dose: 500 mg Famotidine (Famotidine 20 Mg Tablet) 20 mg PO BID [facility] Last Admin: 12/05/22 09:23 Dose: 20 mg Fluticasone Propionate (Fluticasone Propionate Nasal 16 Gm [place]) 1 spray NOSTRIL-B BID [facility] Last Admin: 12/05/22 09:25 Dose: 1 spray Hydroxyzine HCl (Hydroxyzine Hcl 25 Mg Tablet) 25 mg PO Q6H PRN PRN Reason: Anxiety Magnesium Hydroxide (Milk Of Magnesia 30 Ml Oral.Susp) 30 ml PO DAILY PRN PRN Reason: Constipation Magnesium Oxide (Magnesium Oxide 400 Mg Tablet) 400 mg PO BEDTIME [facility] Last Admin: 12/04/22 21:04 Dose: 400 mg Metronidazole (Metronidazole 500 Mg Tablet) 500 mg PO Q12H [facility] Last Admin: 12/05/22 06:34 Dose: Not Given Nicotine Polacrilex (Nicotine Polacrilex 2 Mg Gum) 2 mg BUCCAL Q2H PRN PRN Reason: Nicotine Cravings Patient Own Pataday 1 each EYE-BOTH BEDTIME [facility] Last Admin: 12/04/22 21:15 Dose: 1 each Omeprazole (Omeprazole 20 Mg Capsule.Dr) 20 mg PO BID@0630,1630 [facility] Last Admin: 12/05/22 06:40 Dose: 20 mg Pramoxine HCl (Pramoxine Hcl 1 % Rectal Foam 15 Gm) 1 appl [place] BID PRN PRN Reason: Hemorrhoids Psyllium Hydrophilic Mucilloid (Psyllium Seed 3.7 Gm Packet) 3.7 gm PO DAILY [facility] Last Admin: 12/05/22 09:26 Dose: Not Given Trazodone HCl (Trazodone Hcl 50 Mg Tablet) 50 mg PO BEDTIME MRX1 PRN PRN Reason: Insomnia Trazodone HCl (Trazodone Hcl 50 Mg Tablet) 50 mg PO BEDTIME [facility] Last Admin: 12/04/22 21:05 Dose: 50 mg Allergies Allergies Allergy/AdvReac Type Severity Reaction Status Date / Time gluten Allergy Unknown Unknown Verified 12/01/22 03:59 Assessment & Plan Assessment & Plan (1) Chronic post-traumatic stress disorder (PTSD): Status: Acute Code(s): F43.12 - Post-traumatic stress disorder, chronic (2) Major depressive disorder: Status: Acute Code(s): F32.9 - Major depressive disorder, single episode, unspecified (3) Cannabis use disorder: Status: Acute Code(s): F12.90 - Cannabis use, unspecified, uncomplicated (4) Asperger's disorder: Status: Acute Code(s): F84.5 - Asperger's syndrome Assessment and Plan: R/O Plan 11/30: increase wellbutrin to 450 mg daily. DC gabapentin as not indicated. 12/02: full range of affect, a bit labile/teary. continue current mgmt. 12/03: BV diagnosed, flagyl x 7 days ordered. mood much better today. add metamucil. continue current mgmt otherwise. 12/04: diarrhea now tih flagyl. do not take miralax or metamucil. add hemorrhoids medication per pharmacy. planning for discharge. 12/05: continue current tx plan. Patient educated on: diagnosis, medication risk/benefits and therapeutic strategies Informed Consent: understands Reason for continued inpatient stay Substantial Risk for: med/psych decompensation Time Spent With Patient Time: Total time managing care of this patient today _30___ minutes.
[2022-12-05 19:45] VITALS: BP 104/60; PULSE 74; RESP 16; TEMP 36.2; O2SAT 98
[2022-12-05] MEDS: Magnesium Hydrox/Alum Hydrox 30 ML ORAL.SUSP PO (20:22)
[2022-12-05] MEDS: Divalproex Sodium ER 500 MG TAB.ER.24H PO (20:55)
[2022-12-05] MEDS: Magnesium Oxide 400 MG TABLET PO (20:56)
[2022-12-05] MEDS: traZODone HCL 50 MG TABLET PO (22:29)
[2022-12-06 07:00] VITALS: BMI 27.8
[2022-12-06 08:20] VITALS: BP 129/60; PULSE 72; RESP 16; TEMP 36.9; O2SAT 99
[2022-12-06] MEDS: Famotidine 20 MG TABLET PO (08:29)
[2022-12-06] MEDS: buPROPion HCl XL 150 MG TAB.ER.24H 450 MG PO (08:29)
[2022-12-06] MEDS: Fluticasone Propionate Nasal 16 GM SPRAY 1 SPRAY NOSTRIL-B (08:29)
--- NOTE | 2022-12-06 10:13 | PM.PSYDC ---
DS: Providers Provider Date of Service: 12/06/22 Date of admission: 12/01/22 01:40 Primary care physician: Unknown Physician Consults: 12/01/22 02:24 Consult to Hospitalist Routine Comment: Consulting Provider: Hospitalist Reason For Exam: OSH admission DS: Diagnosis Discharge Diagnosis (1) Chronic post-traumatic stress disorder (PTSD): Status: Acute (2) Major depressive disorder: Status: Acute (3) Cannabis use disorder: Status: Acute (4) Asperger's disorder: Status: Acute DS: Medications Discharge Medications Home Medications: Home Medications Medication Instructions Recorded Confirmed divalproex 500 mg tablet,extended 500 mg PO BEDTIME 12/01/22 12/01/22 release 24 hr famotidine 20 mg tablet 20 mg PO BEDTIME 12/01/22 12/01/22 fluticasone propionate 50 1 spray intranasal BID 12/01/22 12/01/22 mcg/actuation nasal spray,suspension magnesium oxide 400 mg (241.3 mg 400 mg PO BEDTIME 12/01/22 12/01/22 magnesium) tablet pantoprazole 40 mg tablet,delayed 40 mg PO BID 12/01/22 12/01/22 release trazodone 100 mg tablet 50 mg PO BEDTIME 12/01/22 12/01/22 Previous Rx's Medication Instructions Recorded Patient Own Medication 1 ea ophthalmic (eye) BEDTIME ##0 12/06/22 bupropion HCl 150 mg 24 hr tablet, 450 mg (3 x 150 mg) PO DAILY 30 12/06/22 extended release days #90 tabs metronidazole 500 mg tablet 500 mg PO Q12H 7 days #14 tabs 12/06/22 psyllium (Hydrocil Instant oral 1 packet PO DAILY 30 days #30 ea 12/06/22 packet) Mental Status Exam Mental Status Exam Narrative: calm, cooperative. adequately dressed and groomed, wearing street clothes. no PMA/PMR. speech nml amount, nml rate and loudness, nml latency. thoughts linear and logical. affect full range, hyper-intense, non-labile. mood eager. no SI/SIBI/HI/AVH. Data Data Completed and Pending Completed studies during hospitalization [Text1]: 12/01/22 12/02/22 16:33 07:06 Sodium 140 Potassium 4.7 Chloride 106 Carbon Dioxide 23 Anion Gap 16 BUN 23 H Creatinine 1.24 Estim Creat Clear Calc 42.1 Estimated GFR 44 Fasting Glucose 104 H Estimat Average Glucose 103 Hemoglobin A1c % 5.2 Calcium 9.5 Total Bilirubin 0.3 AST 18 ALT 15 Alkaline Phosphatase 63 Total Protein 6.9 Albumin 4.2 Triglycerides 332 H Cholesterol 257 H LDL Cholesterol, Calc 144 H HDL Cholesterol 47 Vitamin B12 845 Folate 13.5 TSH 4.12 H Free T4 0.79 Michelle species DNA Negative Gardnerella DNA Probe Positive A Trichomonas DNA Probe Negative DS: Summary Hospital Course Hospital Course: per 12/01 admissions note: per crisis assessment from OSH, pt presented to ED 11/29 with c/o SI with plan to walk into traffic. she endorsed anhedonia, amotivation, anergia, anorexia, insomnia, depressed mood, SI. she reported psychosocial stressors of concern for housing stability (that her boyfriend might ask her to move out), unemployment with financial strain, inability to act on these issues so as to ameliorate them. on interview with MD on psych unit, pt's narrative c/w that in crisis eval. unable to clearly establish connection btwn life events and current Sx, however. reports she had done well on imipramine in the past but has had to stop taking it due to cardiac effects. she is not very confident in her recall, but she believes she has tried prozac, zoloft, and paxil in the past. she believes one or more of those medications caused an increase in anxiety for her. she is unable to account for why she is prescribed depakote or gabapentin, other than believing that they are mood stabilizers, though she denies any h/o manic episodes. she is concerned about depression, for the most part, currently. she is agreeable to DC gabapentin as not indicated for any purpose and to increase wellbutrin to 450 mg daily for depression. that VPA is present as a prophylactic AED is discussed, in the context of black box warning to increased risk of seizure with wellbutrin. Past Psychiatric History: hosps: none prior SA: remote h/o overdose; not reported so had no treatment SIB: h/o skin picking, none recently outpt: has outpt med provider she sees remotely and whom she feels is very difficult to get a hold of. Medical Evaluation Reviewed: Hospitalist Michelle Pending [facility] Narrative: hearing impaired GERD gluten sensitivity leaky [cardiac] valve Family History: mother - bipolar disorder other family members on wellbutrin, helped by it. father's side has substance use disorder Hx, unspecified. Social History: living with her boyfriend annette in [place]. not working. Substance History: cannabis - daily past 4 years alcohol - h/o 2 mixed drinks daily, now sober Trauma History: reported h/o childhood trauma Precis: 11/30: increase wellbutrin to 450 mg daily. DC gabapentin as not indicated. 12/02: full range of affect, a bit labile/teary. continue current mgmt. 12/03: BV diagnosed, flagyl x 7 days ordered. mood much better today. add metamucil. continue current mgmt otherwise. 12/04: diarrhea now tih flagyl. do not take miralax or metamucil. add hemorrhoids medication per pharmacy. planning for discharge. 12/05: continue current tx plan. 12/06: DCed to home per plan. meds reviewed, reconciled, prescribed. Time Spent with Patient Time attestation: Total time managing care of this patient today ____ minutes. Time spent: Greater than 30 minutes Discharge Plan Discharge Anticipated Discharge Date/Time: 12/06/22 10:11 Patient Disposition: Home, Self-Care Discharge Diagnosis: PTSD, Chronic Depressive Disorder, NOS Cannabis Use Disorder Referrals: Dr. Ward (Psychiatry) [Other] - 12/13/22 2:30 pm (TELEHEALTH APPOINTMENT) Therapy [Other] - 1 Week (You have been placed on the waiting list for therapy. Please reach out to the intake department if you do not hear from them within the next few days. ) Physician,Unknown J [Primary Care Provider] - 1 Week (PCP Amy Gaitan [address] [place] [address] phone [phone] PCP will contact patient with date and time of follow up appt.) Discharge Medications: New Hydrocil Instant Packet 1 packet PO DAILY 30 Days Qty: 30 0RF metronidazole 500 mg Tablet 500 mg PO Q12H 7 Days Qty: 14 0RF bupropion HCl 150 mg Tablet Extended Release 24 Hr 450 mg PO DAILY 30 Days Qty: 90 0RF Patient Own Medication 1 ea ophthalmic (eye) BEDTIME Qty: 0 0RF Continued famotidine 20 mg tablet 20 mg PO BEDTIME magnesium oxide 400 mg (241.3 mg magnesium) tablet 400 mg PO BEDTIME trazodone 100 mg tablet 50 mg PO BEDTIME pantoprazole 40 mg tablet,delayed release (DR/EC) 40 mg PO BID divalproex 500 mg tablet extended release 24 hr 500 mg PO BEDTIME fluticasone propionate 50 mcg/actuation spray,suspension 1 spray intranasal BID Discontinued bupropion HCl 150 mg tablet sustained-release 12 hr 150 mg PO BID gabapentin 300 mg capsule 300 mg PO DAILY Discharge Orders: Discharge Order (Routine); Ordered 12/06/22 Ordered By: Cornelio Mosqueda Diet: Advance to usual diet Activity on Discharge: As tolerated Stand Alone Forms: Patient Portal Discharge page, Community Support Care Plan Goals: remain safe and stable in the outpatient treatment setting Health Concerns: none Plan of Treatment: take medications as prescribed, attend appointments as scheduled Assessment: not at imminent risk of harm to self or others Discharge Date/Time: 12/06/22 11:25
== END 2022-12-06 11:25 | disposition home or self-care (01) | DRG 754 ==
PROVIDERS: Student in an Organized Health Care Education/Training Program; Admitting Provider Psychiatry & Neurology Psychiatry; Visit Provider Psychiatry & Neurology Psychiatry
DX: F32.9 Major depressive disorder, single episode, unspecified (principal); R45.851 Suicidal ideations; K90.41 Non-celiac gluten sensitivity; F43.12 Post-traumatic stress disorder, chronic; F12.90 Cannabis use, unspecified, uncomplicated; F84.5 Asperger's syndrome; K21.9 Gastro-esophageal reflux disease without esophagitis; N76.0 Acute vaginitis; K58.9 Irritable bowel syndrome, unspecified; Z79.899 Other long term (current) drug therapy
CPT/HCPCS: 36415; 80053; 80061; 82607; 82746; 83036; 84439; 84443; 87480; 87510; 87660

== ENCOUNTER → 2022-12-01 01:40 | Outpatient (BNV) | payer OTHER, SELFPAY | PROVIDERS: Admitting Provider Psychiatry & Neurology Psychiatry; Visit Provider Student in an Organized Health Care Education/Training Program | DX: Z02.2 Encounter for examination for admission to residential institution (principal) | CPT/HCPCS: 99429 ==

== ENCOUNTER → 2022-12-01 01:40 | Outpatient (BNV) | payer OTHER, SELFPAY | PROVIDERS: Admitting Provider Psychiatry & Neurology Psychiatry; Visit Provider Psychiatry & Neurology Psychiatry | DX: F33.2 Major depressive disorder, recurrent severe without psychotic features (principal); F43.12 Post-traumatic stress disorder, chronic; F12.90 Cannabis use, unspecified, uncomplicated; F84.5 Asperger's syndrome | CPT/HCPCS: 90792; 99231; 99232; 99239 ==